=== PATIENT | male | born 1950 | race Caucasian/White ===

== ENCOUNTER 2017-01-10 14:44 | Inpatient (IN) ==
[2017-01-10] MEDS ORDERED: VANCOMYCIN 2,000 MG in 0.9 % SODIUM CHLORIDE 500 ML IV ONE (15:13)
[2017-01-10] MEDS ORDERED: PIPERACILLIN SODIUM/TAZOBACTAM 3.375 GM in DEXTROSE 5% IN WATER 50 ML IV SCH (15:15)
--- NOTE | 2017-01-10 15:33 | Emergency Department Note ---
General Adult HPI - General Chief complaint: Wound/Laceration Stated complaint: wound to left foot Time Seen by Provider: 01/10/17 14:47 Source: patient Mode of arrival: wheelchair Limitations: no limitations - History of Present Illness HPI Narrative: 66-year-old male with a history of poorly controlled diabetes as well as a 2-1/ 2 month history of poorly healing diabetic foot wound with ulceration on the lateral side of his left foot with accompanying cellulitis presenting with failed outpatient IV antibiotic therapy from [place]. Patient last month had 13 day admission at [facility] with IV vancomycin as well as Zosyn. He after being discharged was undergoing outpatient IV twice daily antibiotic therapy with vancomycin and Zosyn, however with failed outpatient therapy. He is brought in from Dr. Slater's clinic at wound care for admission. With regards to patient's diabetes, he is currently on Lantus 26 units of which he takes at noon, glipizide 10 mg at night, metformin unknown dose in the morning, of which he hasn't been taking. States that his sugars fasting have been in the 150 range, sugars 2 hours after meals being all the way up into the 200-300 range. His last A1c reportedly was 11%. His primary care provider is in [place], Dr. Morrow - Related Data Home Medications Medication Instructions Recorded Confirmed Aspirin/Acetaminophen/Caffeine 1 each PO TIDP PRN 01/10/17 01/10/17 [Excedrin Migraine Caplet] Insulin Glargine, Human [Lantus] 26 unit SQ QNOON 01/10/17 01/10/17 L.acidoph,Paracasei, B.lactis 1 each PO DAILY 01/10/17 01/10/17 [Probiotic] Lisinopril [Zestril] 2.5 mg PO DAILY 01/10/17 01/10/17 Magnesium Oxide [Magnesium] 250 mg PO DAILY 01/10/17 01/10/17 glipiZIDE [Glipizide ER] 10 mg PO QHS 01/10/17 01/10/17 Allergies Allergy/AdvReac Type Severity Reaction Status Date / Time No Known Drug Allergies Allergy Verified 01/10/17 14:48 Review of Systems All systems ED: reviewed and negative except as stated. Past Medical History - Past Medical History Source: nursing notes reviewed Physical Exam - General Limitations: no limitations General appearance: alert, in no apparent distress - Head Head exam: atraumatic, normocephalic - Eye Eye exam: Present: normal appearance, PERRL, EOMI - ENT ENT exam: normal exam, normal oropharynx, mucous membranes moist - Respiratory Respiratory exam: Present: normal lung sounds bilaterally. Absent: respiratory distress - Cardiovascular Cardiovascular exam: Present: regular rate, normal rhythm, normal heart sounds - Expanded Lower Extremity Exam Foot/toe exam: Present: other (bleeding 3cm circular foot ulcer with surrounding purulent discharge) Course Vital Signs Temperature 97.0 F 01/10/17 14:45 Pulse Rate 79 01/10/17 14:45 Respiratory Rate 16 01/10/17 14:45 Blood Pressure 167/80 01/10/17 14:45 Pulse Oximetry (%) 99 01/10/17 14:45 Temperature 97.0 F 01/10/17 14:45 Pulse Rate 75 01/10/17 16:12 Respiratory Rate 16 01/10/17 14:45 Blood Pressure 132/76 01/10/17 16:12 Pulse Oximetry (%) 99 01/10/17 16:12 Medical Decision Making - [facility] Narrative Medical decision making narrative: Patient failed outpatient IV antibiotic, with concern over possible extension into osteomyelitis pattern from Dr. Slater. Patient placed on IV Vancomycin and Zosyn upon arrival, with CBC demonstrating normal WBC, ESR mildly elevated at 32 and venous lactic acid normal at 0.8. MRI unavailable today, will need as inpatient tomorrow. Discussed case with Dr. Jones, [facility], agreed upon admission at 16:48. Patient admitted in fair condition. - Lab Data Lab results reviewed: Yes I reviewed the patient's lab results. Result diagrams: 01/10/17 14:55 01/10/17 14:55 Lab Results 01/10/17 01/10/17 01/10/17 Range/Units 14:55 14:55 14:55 WBC 7.3 (4.5-11.0) K/mcL RBC 4.46 L (4.50-5.90) M/mcL Hgb 13.6 (13.5-16.5) g/dL Hct 40.3 L (41.0-55.0) % MCV 90.3 (80.0-100.0) fL MCH 30.6 (26.0-34.0) pg MCHC 33.8 (31.0-36.0) g/dL RDW 14.4 (11.5-14.5) % Plt Count 240 (140-440) K/mcL MPV 7.4 (7.4-10.4) fL Gran % 67.5 (38.0-78.0) % Lymph % (Auto) 20.9 (15.5-49.0) % [place] % (Auto) 5.4 (1.0-12.0) % Eos % (Auto) 5.8 (0.0-7.0) % Baso % (Auto) 0.4 (0.0-2.0) % Gran # 4.9 (1.8-8.0) K/mcL Lymph # 1.5 (1.5-4.8) K/mcL [place] # 0.4 (0.1-0.9) K/mcL Eos # 0.4 (0.0-0.7) K/mcL Baso # 0 (0.0-0.3) K/mcL ESR (0-15) mm/hr VBG Lactic Acid 0.8 (0.5-2.2) mmol/L Sodium 139 (133-145) mmol/L Potassium 4.2 (3.3-5.1) mmol/L Chloride 103 (96-108) mmol/L Carbon Dioxide 20 L (22-30) mmol/L Anion Gap 16.0 (8-16) BUN 30 H (8-23) mg/dl Creatinine 1.1 (0.7-1.2) mg/dl GFR Calculation 70 Glucose 118 H (70-105) mg/dL Calcium 9.2 (8.6-10.4) mg/dl Total Bilirubin 0.2 (0.0-1.0) mg/dL AST 15 (0-37) U/l ALT 14 (0-40) U/l Alkaline Phosphatase 56 (39-117) U/L C-Reactive Protein (0.0-0.8) mg/dl Total Protein 7.3 (5.9-8.4) gm/dL Albumin 4.1 (3.2-5.2) gm/dL Globulin 3.2 (2.2-3.7) gm/dL Albumin/Globulin Ratio 1.3 (1.0-2.3) 01/10/17 01/10/17 Range/Units 14:55 14:55 WBC (4.5-11.0) K/mcL RBC (4.50-5.90) M/mcL Hgb (13.5-16.5) g/dL Hct (41.0-55.0) % MCV (80.0-100.0) fL MCH (26.0-34.0) pg MCHC (31.0-36.0) g/dL RDW (11.5-14.5) % Plt Count (140-440) K/mcL MPV (7.4-10.4) fL Gran % (38.0-78.0) % Lymph % (Auto) (15.5-49.0) % [place] % (Auto) (1.0-12.0) % Eos % (Auto) (0.0-7.0) % Baso % (Auto) (0.0-2.0) % Gran # (1.8-8.0) K/mcL Lymph # (1.5-4.8) K/mcL [place] # (0.1-0.9) K/mcL Eos # (0.0-0.7) K/mcL Baso # (0.0-0.3) K/mcL ESR 24 H (0-15) mm/hr VBG Lactic Acid (0.5-2.2) mmol/L Sodium (133-145) mmol/L Potassium (3.3-5.1) mmol/L Chloride (96-108) mmol/L Carbon Dioxide (22-30) mmol/L Anion Gap (8-16) BUN (8-23) mg/dl Creatinine (0.7-1.2) mg/dl GFR Calculation Glucose (70-105) mg/dL Calcium (8.6-10.4) mg/dl Total Bilirubin (0.0-1.0) mg/dL AST (0-37) U/l ALT (0-40) U/l Alkaline Phosphatase (39-117) U/L C-Reactive Protein < 0.3 (0.0-0.8) mg/dl Total Protein (5.9-8.4) gm/dL Albumin (3.2-5.2) gm/dL Globulin (2.2-3.7) gm/dL Albumin/Globulin Ratio (1.0-2.3) Disposition Clinical Impression: Poorly controlled diabetes mellitus Cellulitis Qualifiers: Site of cellulitis: extremity Site of cellulitis of extremity: lower extremity Laterality: left Qualified Code(s): L03.116 - Cellulitis of left lower limb Disposition: Xfer As Inpt ([facility]) Condition: Fair Referrals: Kelvin Ovalles DO [Primary Care Provider] -
[2017-01-10 15:36] LABS: Basophils # (Auto) 0 K/mcL (0.0-0.3); Basophils % (Auto) 0.4 % (0.0-2.0); Eosinophils # (Auto) 0.4 K/mcL (0.0-0.7); Eosinophils % (Auto) 5.8 % (0.0-7.0); Granulocytes % (Auto) 67.5 % (38.0-78.0); Lymphocytes # (Auto) 1.5 K/mcL (1.5-4.8); Lymphocytes % (Auto) 20.9 % (15.5-49.0); Mean Cell Volume 90.3 fL (80.0-100.0); Mean Corpuscular HGB Conc 33.8 g/dL (31.0-36.0); Mean Corpuscular Hemoglobin 30.6 pg (26.0-34.0); Monocytes # (Auto) 0.4 K/mcL (0.1-0.9); Monocytes % (Auto) 5.4 % (1.0-12.0); Platelet Count 240 K/mcL (140-440); RBC 4.46 M/mcL (4.50-5.90); Red Cell Distribution Width 14.4 % (11.5-14.5)
[2017-01-10 15:56] LABS: ALT/SGPT 14 U/l (0-40); Albumin 4.1 gm/dL (3.2-5.2); Albumin/Globulin Ratio 1.3 (1.0-2.3); Alkaline Phosphatase 56 U/L (39-117); Blood Urea Nitrogen 30 mg/dl (8-23)
[2017-01-10] MEDS ORDERED: NON FORMULARY MEDICATION 1 DOSE MISCELL (Aspirin/Acetaminophen/Caffeine [Excedrin Migraine PO PRN ×2 (17:16→18:41)
--- NOTE | 2017-01-10 17:23 | Internal Med History&Physical ---
Medical - H&P: HPI Patient information: Note initiated : 01/10/17 at 5:20 pm Patient: Jason Gonzales 66 y/o M admitted on for wound to left foot. History of present illness: Mr. Gonzales is a 66 year old male ith a history of type 2 diabetes for more than 20 years. He says he really has had no significant other medical issues that he is aware of. He did develop diabetic peripheral neuropathy over the last 2 years, so has decreased sensation of his feet. In October of this year he said he was walking around and some rubber boots, and subsequently noticed a "blood blister" of his left foot. He popped it and then covered it with a Band- Aid. He thought he did okay but later that month he got the flu and went in to see his doctor. He has to stop to check his foot and apparently there was pus coming out of the opening. He was then admitted to [facility] in [place] for 2 weeks of IV antibiotics. He then was sent home, and came in twice a day for twice a day IV antibiotics, we believe Zosyn and vancomycin. He has been getting wound care to her 3 days a week, but says he noticedover the last week he had some increased discomfort and increased swelling of his foot. He went to see his doctor today, who then referred him down to see Dr. Colorado of wound care. Dr. Colorado looked at his foot, and was concerned about an underlying abscess andor osteomyelitis. The patient was examined in the emergency room, and noticed to have a round ulcer on the plantar surface of the left foot with significant bloody drainage. There was surrounding cellulitis and edema. He is, however, afebrile White blood cell count is normal. Sedimentation rate is mildly elevated. The patient notes that over the last few years he had stopped monitoring his diabetes very closely, and prior to hospital admission in November he had blood sugars in the 200-300 range. However normally, blood sugars run less than 150. Otherwise, he denies fever or chills, headaches or dizziness new eye or ear symptoms. He does have chronic blurry vision, and chronic tinnitus. Does wear hearing aids. He denies trouble chewing or swallowing, and denies sore throat or cough. He denies chest pain or palpitations, swollen glands, shortness of breath, abdominal pain, nausea or vomiting or diarrhea, constipation He does have chronic urinary frequency but has never seen a specialist for that. PMH: DM 2, recently uncontrolled diabetic peripheral neuropathy Diabetic foot ulcer-status post 6 or 8 weeks of IV Zosyn and vancomycin. hronic tinnitus Chronic blurry vision History of right Achilles tendon rupture patient denies history of hypertension ,heart disease, hyperlipidemia PCP office notes indicate possible hypertension. medications: Magnesium oxide 250 mg daily Probiotics one daily Excedrin migraine one 3 times a day when necessary Glipizide ER 10 mg daily at bedtime Lisinopril 2.5 - 5 mg daily Lantus 26 units every noon Vancomycin and IV Zosyn daily at an outpatient clinic. (patient says he was previously treated with metformin, and that was changed to glipizide. He does not recall why. Notes obtained from [facility] indicate the patient is also taking atorvastatin 40 mg daily, Flomax 0.4 mg daily, omeprazole dailycomment metformin 1000 mg twice a day Allergies:No known drug allergies Family history: mother at age 51 after an accident. His father at age 83 after an accident. He had 6 brothers and one sister. One brother was recently diagnosed with liver cancer. 3 brothers have , 2 from accidents, and 1in the [employer]. His sister is 86 years old and alive and well. Social history: he patient has never been a smoker. He drinks about one beer per week. He does not use drugs. He is and lives with his . He has worked as a floor covering contractor, and more recently mostly supervises Medical - H&P: Meds Home Medications Medication Instructions Recorded Confirmed Type Aspirin/Acetaminophen/Caffeine 1 each PO TIDP PRN 01/10/17 01/10/17 History [Excedrin Migraine Caplet] Insulin Glargine, Human [Lantus] 26 unit SQ QNOON 01/10/17 01/10/17 History L.acidoph,Paracasei, B.lactis 1 each PO DAILY 01/10/17 01/10/17 History [Probiotic] Lisinopril [Zestril] 2.5 mg PO DAILY 01/10/17 01/10/17 History Magnesium Oxide [Magnesium] 250 mg PO DAILY 01/10/17 01/10/17 History glipiZIDE [Glipizide ER] 10 mg PO QHS 01/10/17 01/10/17 History Allergies Allergy/AdvReac Type Severity Reaction Status Date / Time No Known Drug Allergies Allergy Verified 01/10/17 14:48 Medical - H&P: Exam - Constitutional Vitals: Temp Pulse Resp BP Pulse Ox 97.0 F 77 16 118/76 99 01/10/17 14:45 01/10/17 17:01 01/10/17 14:45 01/10/17 17:01 01/10/17 17:01 on exam, he is a well-developed well-nourished man in no acute distress. Head: Normocephalic, atraumatic. ears: He has bilateral hearing aids. TMs and canals are clear. Eyes: PERRLA, EOMI, anicteric. pharynx: Is clear. Teeth are in good repair. Neck: Is supple, without lymphadenopathy, JVD, thyromegaly, bruits. Cardiac exam: Shows regular rate and rhythm, with normal S1 and S2, without murmurs rubs or gallops. Lungs: Are clear to auscultation, without rales, rhonchi, wheezes. Abdomen: Soft and nontender, without obvious masses. Bowel sounds are normoactive. Extremities: right lower extremity shows no cyanosis, clubbing, edema. Pulses are faintly palpable. Left lower extremity that shows some mild pitting edema at the ankle. The left foot is heavily bandaged, and Dr. Colorado has requested that we not remove that bandage. There is blood seeping through on the plantar surface. Neurologic exam: Is grossly nonfocal. Skin exam: Other than his foot, shows no rashes or other worrisome lesions. Medical - H&P: Reslt - Labs CBC & Chem 7: 01/10/17 14:55 01/10/17 14:55 Labs: Short CBC 01/10/17 Range/Units 14:55 WBC 7.3 (4.5-11.0) K/mcL Hgb 13.6 (13.5-16.5) g/dL Hct 40.3 L (41.0-55.0) % Plt Count 240 (140-440) K/mcL BMP 01/10/17 14:55 Sodium 139 Potassium 4.2 Chloride 103 Carbon Dioxide 20 L BUN 30 H Creatinine 1.1 Glucose 118 H Calcium 9.2 Liver Function 01/10/17 Range/Units 14:55 Total Bilirubin 0.2 (0.0-1.0) mg/dL AST 15 (0-37) U/l ALT 14 (0-40) U/l Alkaline Phosphatase 56 (39-117) U/L Albumin 4.1 (3.2-5.2) gm/dL sedimentation rate: 24 Lactic acid is 0.8 normal C-reactive protein is normal at less than 0.3 Medical - H&P: A/P (1) Peripheral sensory neuropathy due to type 2 diabetes mellitus Current visit: Yes Status: Acute (2) Cellulitis Current visit: Yes Status: Acute (3) Poorly controlled diabetes mellitus Current visit: Yes Status: Acute - Narrative A/P Narrative: #1. Infected diabetic foot ulcer. this apparently is worsening, in spite of ongoing wound care and IV antibiotics. There is concern for underlying abscess and/or osteomyelitis.- -Admit, continue IV vancomycin. Change Zosyn over to meropenem. -mRI of his foot is ordered- -Wound care consult with Dr. Colorado. -Pain meds as needed. #2. Type 2 diabetes. -Continue Lantus, lisinopril, glipizide. -Accu-Cheks and sliding scale insulin. #3. CODE STATUS: #4. DVT prophylaxis: Subcutaneous Lovenox. #5. Elevated blood pressure. Continue to monitor. #6. Reported urinary frequency. Check urinalysis. #7. Elevated BUN- possibly indicating dehydration. -IV fluids. Follow labs. this visit took approximately 50 minutes, to review the patient's case with the ER Raquel, review test results, interview and examine the patient, review hospital records from [facility], and write orders.
[2017-01-10] MEDS ORDERED: DOCUSATE SODIUM 100 MG CAPSULE PO PRN (18:41)
[2017-01-10] MEDS ORDERED: ONDANSETRON ODT 4 MG TABLET SL PRN (18:41)
[2017-01-10] MEDS ORDERED: HYDROcodone/APAP 5/325MG TABLET PO PRN (18:41)
[2017-01-10] MEDS ORDERED: VANCOMYCIN PER PHARMACY IV SCH (18:41)
[2017-01-10] MEDS ORDERED: ACETAMINOPHEN 325 MG TABLET PO PRN (18:41)
[2017-01-10] MEDS ORDERED: MAGNESIUM HYDROXIDE 30 ML ORAL.SUSP PO PRN (18:41)
[2017-01-10] MEDS ORDERED: DEXTROSE 50% 50 ML VIAL IV PRN (18:41)
[2017-01-10] MEDS ORDERED: NALOXONE HCL 0.4 MG/ML VIAL IV PRN (18:41)
[2017-01-10] MEDS: POTASSIUM CHLORIDE 20 MEQ in 0.45 % SODIUM CHLORIDE 1,000 ML IV SCH (18:59)
[2017-01-10] MEDS ORDERED: IMIPENEM/CILASTATIN SODIUM 500 MG VIAL IV ONE (20:00)
[2017-01-10] MEDS: IMIPENEM/CILASTATIN SODIUM 500 MG in 0.9 % SODIUM CHLORIDE 100 ML IV SCH (20:05)
[2017-01-10 20:42] LABS: Estimated Average Glucose(eAG) 174 mg/dL; Hemoglobin A1C 7.7 % HGB (4.0-6.0)
[2017-01-10] MEDS ORDERED: GLIPIZIDE 10 MG PO SCH (21:00)
[2017-01-10] MEDS: INSULIN LISPRO 1 UNIT/0.01 ML UNIT SQ SCH (21:11)
--- NOTE | 2017-01-10 21:15 | General Surgery Consult Note ---
History of Present Illness Patient information: Note initiated : 01/10/17 at 9:07 pm Service Date, if different from initiated Date: [] Patient: Jason Gonzales 66 y/o M admitted on 01/10/17 for wound to left foot. Chief Complaint: [] Consult date: 01/10/17 Reason for consult: other Requesting physician: Chika Arredondo History of present illness: 66/M From [facility]. ID. [id number], Peripheral neuropathy. NON smoker and NON alcoholic. seen in Wound Clinic and later admitted to the hospital via ER . Patient presents with FAILED out patient treatment for a NON HEALING and deteriorating wound with FAILED IP / OP non surgical treatment. This started as a blood blister on the plantar aspect of LEFT 5 th toe. This IS worsening over the past 2 weeks. Painless in nature and without constitutional symptoms and with uncontrolled diabetes, electrolyte disorders and now with blood tinged / purulent drainage soaking through gauze. I had seen patient in clinic earlier on and removed iodoform gauze packing with resolution of throbbing pain and discomfort. I reviewed his notes from the referring hospital and spoke with Dr. NICHOLE about patient's admission to [facility] for further management. Review of Systems - Constitutional other (Pain and discomfort over the left foot and difficulty in ambulation. ) - Musculoskeletal other (Blood boil / Blister over plantar and lateral aspect of LEFT 5 th toe around MPJ area, 2 weeks ago. This ruptured and led to mutliple areas od drainage. ) - Neurological other (Peripheral neuropathy both feet.) Past History Past medical history: Hospitalized at [facility] in [facility] [place] for wound care and IV antibiotics. Sylvia lower inner third of leg, drained pus and dried up subsequently. Medications and Allergies Home Medications Medication Instructions Recorded Confirmed Type Aspirin/Acetaminophen/Caffeine 1 each PO TIDP PRN 01/10/17 01/10/17 History [Excedrin Migraine Caplet] Insulin Glargine, Human [Lantus] 26 unit SQ QNOON 01/10/17 01/10/17 History L.acidoph,Paracasei, B.lactis 1 each PO DAILY 01/10/17 01/10/17 History [Probiotic] Lisinopril [Zestril] 2.5 mg PO DAILY 01/10/17 01/10/17 History Magnesium Oxide [Magnesium] 250 mg PO DAILY 01/10/17 01/10/17 History glipiZIDE [Glipizide ER] 10 mg PO QHS 01/10/17 01/10/17 History Allergies Allergy/AdvReac Type Severity Reaction Status Date / Time No Known Drug Allergies Allergy Verified 01/10/17 14:48 Exam Temp Pulse Resp BP Pulse Ox 98.4 F 80 20 158/82 98 01/10/17 17:50 01/10/17 17:50 01/10/17 17:50 01/10/17 17:50 01/10/17 17:50 - General physical appearance well developed, well nourished, no pain - Eyes PERRL, normal ocular movement - ENT normal pinna, normal nares, normal mucosa, no hearing loss, no congestion - Head Head exam IM: Present: atraumatic, normal inspection, normocephalic - Neck no masses, no bruits, trachea midline, no lymphadectomy, no venous distension - Cardiovascular Cardiovascular exam IM: Present: normal rate and rhythm - Respiratory normal expansion, normal respiratory effort, clear to auscultation - Abdomen Abdomen: Present: soft, non tender, bowel sounds - Genitourinary Present: normal penis with no external lesions - Integumentary Present: other (Multiple sinuses and hemopurulent driange from plantar, lateral and dorsal aspect of LEFT 5th toe MPJ area. ) - Neurologic Present: other (No focal neurological deficits or lateralizing signs, he HAS diabetes with peripheral neuropahty of BOTH feet, ankles and lower legs.) - Musculoskeletal Present: normal gait, other (Onycogryposis toe nails both feet. ) - Psychiatric Present: oriented to time, oriented to person, oriented to place, speech is normal, memory intact Results - Labs 01/11/17 03:39 01/11/17 03:39 Abnormal lab results 01/10/17 Range/Units 19:58 Hemoglobin A1c 7.7 H (4.0-6.0) % HGB Diabetes panel 01/10/17 Range/Units 19:58 Hemoglobin A1c 7.7 H (4.0-6.0) % HGB All other labs normal. Assessment and Plan (1) Sepsis affecting skin Assessment: multiple loculated collections around Left 5 th toe MPJ and distally extending to MPJ and proximal interosseous space. Pln: Loculations drained and subcutaneous tissue thoroughly irrigated and washed out with GCB solution. Patient started on IV antibiotics. Await MRI of left foot , ankle and lower leg. WOUND CARE. Clean and cover with antibiotic soaked wet to dry dressings q 12 hrly. Monitor clinical progress. POSSIBLE Surgical debridement in OR AFTER review of MRI. Status: Acute (2) Septic arthritis of interphalangeal joint of toe of left foot Status: Acute
[2017-01-10] MEDS: 0.9 % SODIUM CHLORIDE 10 ML SYRINGE IV SCH (21:30)
[2017-01-11] MEDS ORDERED: IMIPENEM/CILASTATIN SODIUM 500 MG VIAL IV ONE (03:52)
[2017-01-11] MEDS ORDERED: POTASSIUM CHLORIDE 20 MEQ/10 ML VIAL IV ONE (03:53)
[2017-01-11] MEDS: IMIPENEM/CILASTATIN SODIUM 500 MG in 0.9 % SODIUM CHLORIDE 100 ML IV SCH ×3 (04:04→20:14)
[2017-01-11 05:13] LABS: Basophils # (Auto) 0 K/mcL (0.0-0.3); Basophils % (Auto) 0.8 % (0.0-2.0); Eosinophils # (Auto) 0.6 K/mcL (0.0-0.7); Eosinophils % (Auto) 9.4 % (0.0-7.0); Granulocytes % (Auto) 61.9 % (38.0-78.0); Lymphocytes # (Auto) 1.2 K/mcL (1.5-4.8); Lymphocytes % (Auto) 19.9 % (15.5-49.0); Mean Cell Volume 90.8 fL (80.0-100.0); Mean Corpuscular HGB Conc 33.6 g/dL (31.0-36.0); Mean Corpuscular Hemoglobin 30.5 pg (26.0-34.0); Monocytes # (Auto) 0.5 K/mcL (0.1-0.9); Platelet Count 210 K/mcL (140-440); RBC 4.18 M/mcL (4.50-5.90); Red Cell Distribution Width 14.4 % (11.5-14.5)
[2017-01-11 05:44] LABS: Prealbumin 22.5 mg/dl (20-40)
[2017-01-11] MEDS: 0.9 % SODIUM CHLORIDE 10 ML SYRINGE IV SCH ×3 (05:52→21:42)
[2017-01-11 05:53] LABS: ALT/SGPT 12 U/l (0-40); Albumin 3.8 gm/dL (3.2-5.2); Albumin/Globulin Ratio 1.5 (1.0-2.3); Alkaline Phosphatase 48 U/L (39-117); Bilirubin,Direct < 0.2 mg/dL (0.0-0.3); Blood Urea Nitrogen 21 mg/dl (8-23); Gamma Glutamyl Transpeptidase 14 U/L (8-61); Magnesium 2.2 mg/dL (1.6-2.5); Uric Acid 6.1 mg/dL (2.5-8.0)
[2017-01-11] MEDS: POTASSIUM CHLORIDE 20 MEQ in 0.45 % SODIUM CHLORIDE 1,000 ML IV SCH ×2 (06:20→14:19)
[2017-01-11 07:00] LABS: Erythrocyte Sedimentation Rate 18 mm/hr (0-15)
[2017-01-11] MEDS: INSULIN LISPRO 1 UNIT/0.01 ML UNIT SQ SCH ×4 (07:01→20:50)
[2017-01-11] MEDS: MAGNESIUM OXIDE 400 MG TABLET PO SCH (07:34)
[2017-01-11] MEDS: ENOXAPARIN 40 MG/0.4 ML SYRINGE SQ SCH (07:34)
[2017-01-11] MEDS: glipiZIDE 5 MG TAB.XL.24H PO SCH ×2 (07:34→16:45)
[2017-01-11] MEDS: LISINOPRIL 5 MG TABLET PO SCH (07:34)
[2017-01-11] MEDS: VANCOMYCIN 1,500 MG in 0.9 % SODIUM CHLORIDE 500 ML IV SCH ×2 (08:00→21:26)
[2017-01-11] MEDS ORDERED: [UNRECOGNIZED DRUG - OTHER] PO SCH (09:00)
[2017-01-11] MEDS ORDERED: ASPIRIN 81 MG TAB.CHEW CHEWED SCH (09:00)
[2017-01-11] MEDS ORDERED: LISINOPRIL 2.5 MG TABLET PO SCH (09:00)
[2017-01-11] MEDS ORDERED: ACIDOPH PARACASEI B LACTIS PO SCH (09:00)
[2017-01-11] MEDS ORDERED: MAGNESIUM OXIDE 250 MG PO SCH (09:00)
--- NOTE | 2017-01-11 09:22 | Internal Med Progress Note ---
Medical - PN: Subj Patient information: Note initiated : 01/11/17 at 9:21 am Patient: Jason Gonzales 66 y/o M admitted on 01/10/17 for wound to left foot. Interval history: January 10, 2017: History of present illness: Mr. Gonzales is a 66 year old male ith a history of type 2 diabetes for more than 20 years. He says he really has had no significant other medical issues that he is aware of. He did develop diabetic peripheral neuropathy over the last 2 years, so has decreased sensation of his feet. In October of this year he said he was walking around and some rubber boots, and subsequently noticed a "blood blister" of his left foot. He popped it and then covered it with a Band- Aid. He thought he did okay but later that month he got the flu and went in to see his doctor. He has to stop to check his foot and apparently there was pus coming out of the opening. He was then admitted to [facility] in [place] for 2 weeks of IV antibiotics. He then was sent home, and came in twice a day for twice a day IV antibiotics, we believe Zosyn and vancomycin. He has been getting wound care to her 3 days a week, but says he noticedover the last week he had some increased discomfort and increased swelling of his foot. He went to see his doctor today, who then referred him down to see Dr. Colorado of wound care. Dr. Colorado looked at his foot, and was concerned about an underlying abscess andor osteomyelitis. The patient was examined in the emergency room, and noticed to have a round ulcer on the plantar surface of the left foot with significant bloody drainage. There was surrounding cellulitis and edema. He is, however, afebrile White blood cell count is normal. Sedimentation rate is mildly elevated. The patient notes that over the last few years he had stopped monitoring his diabetes very closely, and prior to hospital admission in November he had blood sugars in the 200-300 range. However normally, blood sugars run less than 150. Otherwise, he denies fever or chills, headaches or dizziness new eye or ear symptoms. He does have chronic blurry vision, and chronic tinnitus. Does wear hearing aids. He denies trouble chewing or swallowing, and denies sore throat or cough. He denies chest pain or palpitations, swollen glands, shortness of breath, abdominal pain, nausea or vomiting or diarrhea, constipation He does have chronic urinary frequency but has never seen a specialist for that. January 11: -today, he patient says he is feelingpretty well. He still notes some soreness in his left posterior ankle and leg area, and less so in his foot. The foot and ankle are still swollen. - Otherwise, he says he feels fine. He denies fever or chills, headaches or dizziness, chest pain or palpitations, shortness of breath, abdominal pain.he denies dysuria. -He does report several loose stools last night, and one this morning, without abdominal cramping or bright red blood per rectum. Medication list from his November 25 discharge hospital records: Atorvastatin 40 mg daily, Flomax 0.4 mg daily, glipizide 10 mg daily, Lantus 30 unitsdaily, lisinopril 2.5 mg daily, omeprazole daily this does not coincide with the medication list the patient gave us. - Constitutional Vitals: Vital Signs Temp Pulse Resp BP Pulse Ox 97.1 F 72 16 148/80 97 01/11/17 06:27 01/11/17 04:00 01/11/17 06:27 01/11/17 06:27 01/11/17 06:27 Period Temp Pulse Resp BP Sys/Barney Pulse Ox Last 24 Hr 97.1 F-97.6 F 71-73 12-16 121-148/69-80 95-98 Intake and Output 01/10/17 01/11/17 01/11/17 21:59 05:59 13:59 Intake Total 1060 / 1060 Output Total 325 / 325 651 / 651 350 / 350 Balance -325 / -325 409 / 409 -350 / -350 Weight 214 lb Intake & Output: Intake & Output 01/10/17 01/11/17 01/11/17 21:59 05:59 13:59 Intake Total 1060 / 1060 Output Total 325 / 325 651 / 651 350 / 350 Balance -325 / -325 409 / 409 -350 / -350 Weight 214 lb Intake: IV 1010 / 1010 Potassium Chloride 20 Meq 1010 / 1010 In Sodium Chloride 0.45% 1,000 ml @ 100 mls/hr IV .Q10H6M [facility] Rx#: [id number] Oral 50 / 50 Output: Void Amount 325 / 325 650 / 650 350 / 350 # of times incontinent of urine Other: Meal Breakfast Percent of Meal Consumed 100% Feeding Ability Independent # Voids 2 # Bowel Movements 1 1 he is lying in bed, napping when I entered the room. He awakens easily, and is in no acute distress. neck is supple without lymphadenopathy or JVD. cardiac exam shows regular rate and rhythm. Lungs are clear to auscultation. Abdomen is soft and nontender. Extremities:Right lower extremity shows no cyanosis or edema. Left lower extremity the foot is heavily bandaged. There continues to be swelling and tenderness from the foot up into the ankle as well as the posterior lower leg. there is very minimal erythema noted. neuro exam is grossly nonfocal. Medical - PN: Obj Da - Labs CBC & Chem 7: 01/11/17 03:39 01/11/17 03:39 Labs: Abnormal Lab Results 01/11/17 01/10/17 03:39 19:58 RBC 4.18 L Hgb 12.8 L Hct 38.0 L Eos % (Auto) 9.4 H Lymph # 1.2 L ESR 18 H Hemoglobin A1c 7.7 H January 2 : TSH is normal at 1.6 lFTs are normal. Calcium and magnesium are normal. Uric acid is normal. Meds: Medications Acetaminophen (Tylenol) 650 mg PO Q6HP PRN PRN Reason: PAIN/FEVER > 101 Acetaminophen/Hydrocodone Bitart ([place]mond 5/325mg) 1 tab PO Q4HP PRN PRN Reason: Pain Aspirin (Aspirin) 81 mg CHEWED DAILY [facility] Last Admin: 01/11/17 07:34 Dose: 81 mg Dextrose (Dextrose 50%) 0 ml IV UD PRN PRN Reason: Hypoglycemia Diagnostic Test (Pha) (Accu-Chek) 1 each FS ACHS [facility] Last Admin: 01/11/17 07:01 Dose: 1 each Docusate Sodium (Colace) 100 mg PO BID PRN PRN Reason: Constipation Enoxaparin Sodium (Lovenox) 40 mg SQ DAILY [facility] Last Admin: 01/11/17 07:34 Dose: 40 mg Glipizide (Glucotrol Xl) 5 mg PO BIDAC [facility] Last Admin: 01/11/17 07:34 Dose: 5 mg Potassium Chloride 20 meq/ (Sodium Chloride) 1,010 mls @ 100 mls/hr IV .Q10H6M [facility] Last Admin: 01/11/17 06:20 Dose: 100 mls/hr Imipenem/Cilastatin Sodium 500 (mg/ Sodium Chloride) 100 mls @ 100 mls/hr IV Q8H [facility] Last Admin: 01/11/17 04:04 Dose: Not Given Vancomycin HCl 1,500 mg/ (Sodium Chloride) 500 mls @ 333.3 mls/hr IV Q12H [facility] Last Admin: 01/11/17 08:00 Dose: 333.3 mls/hr Gentamicin Sulfate 40 mg/Clindamycin Phosphate 300 mg/Bacitracin 25,000 unit/ Sodium Chloride 503 mls @ 1 mls/hr IRR BID [facility] Insulin Glargine (Lantus) 26 unit SQ QNOON [facility] Insulin Human Lispro (Humalog) 0 unit SQ ACHS [facility] PRN Reason: Protocol Last Admin: 01/11/17 07:01 Dose: Not Given Lactobacillus Rhamnosus (Culturelle) 1 cap PO DAILY [facility] Lisinopril (Zestril) 2.5 mg PO DAILY [facility] Last Admin: 01/11/17 07:34 Dose: 2.5 mg Magnesium Hydroxide (Milk Of Magnesia) 30 ml PO DAILYP PRN PRN Reason: Constipation Magnesium Oxide (Magnesium Oxide) 400 mg PO DAILY [facility] Last Admin: 01/11/17 07:34 Dose: 400 mg Naloxone HCl (Narcan) 0.1 mg IV Q2MIN PRN PRN Reason: Opiate Reversal Ondansetron HCl (Zofran Odt) 4 mg SL Q6HP PRN PRN Reason: Nausea And Vomiting Sodium Chloride (Saline Flush) 10 ml IV Q8 [facility] Last Admin: 01/11/17 05:52 Dose: Not Given Vancomycin HCl (Vancomycin Per Pharmacy) 1 order IV UD [facility] Medical - PN: A/P - Time Spent With Patient Total time spent is greater than 50% in coordination of care (as documented) at patient's floor/unit and/or counseling patient: (1) Peripheral sensory neuropathy due to type 2 diabetes mellitus Status: Acute Current Visit: Yes (2) Cellulitis Status: Acute Current Visit: Yes (3) Poorly controlled diabetes mellitus Status: Acute Current Visit: Yes - Narrative A/P Narrative: #1. Infected diabetic foot ulcer. this apparently is worsening, in spite of ongoing wound care and IV antibiotics. There is concern for underlying abscess and/or osteomyelitis.- -Admit, continue IV vancomycin. Change Zosyn over to meropenem. -mRI of his foot is ordered- this will hopefully be done this morning. -Wound care consult with Dr. Colorado. -Pain meds as needed. -hopefully we will get repeat cultures, and Dr. Colorado decides to take the patient to the OR. #2. Type 2 diabetes. last 3 Accu-Cheks range from 110-155. Hemoglobin A1c is nearly at goal so clearly diabetic control has been improving over the last few months. -Continue Lantus, lisinopril, glipizide. I did split his dose of glipizide, in case he runs into hypoglycemia. -Accu-Cheks and sliding scale insulin. -as a diabetic, he should be on daily aspirin, LETY inhibitor, statin. It appears he has only been on a low-dose lety at home. although, hospital records indicate he was prescribed atorvastatin. - November records from his PCP indicated he should be on metformin, but the patient believes this was discontinued. I would rather see him discontinue the glipizide, and continue with metformin and Lantus. I would consider resuming metformin, and holding glipizide, after any studies requiring dye, and/or surgery. -consider titrating the lisinopril. Add daily aspirin, again once any surgery is completed. -resume atorvastatin. #3. CODE STATUS: full code. #4. DVT prophylaxis: Subcutaneous Lovenox. #5. Elevated blood pressure. Continue to monitor. -consider up-titrating the lisinopril. -Of note, the patient has noticed a dry cough lately. This may be related to his LETY inhibitor. We may want to consider switching lisinopril over to Cozaar. #6. Reported urinary frequency. - Check urinalysis. -november hospital records indicate he was on Flomax at home, although the patient does not seem to recall this. -we will see if his can bring in his current home medication list, or perhaps check with his pharmacy. #7. Elevated BUN- possibly indicating dehydration. -improved after IV fluids overnight. #8. GI. -patient reports several loose stools. He is certainly at risk for C. difficile colitis. Send stool for C. difficile. Continue probiotics. this visit took approximately 30 minutes today, to interview and examine the patient, review test results, review previous medication list again, and write orders. Medical - PN: Qual - Stroke Symptom Onset Unknown: No - VTE Deep Vein Thrombosis/Pulmonary Embolism Present on Admission: No
[2017-01-11] MEDS: LACTOBACILLUS 1 CAPSULE PO SCH (09:50)
[2017-01-11] MEDS: GENTAMICIN SULFATE 40 MG, CLINDAMYCIN 300 MG, BACITRACIN 25,000 UNIT in SODIUM CHLORIDE... IRR SCH ×2 (09:51→21:42)
--- NOTE | 2017-01-11 10:10 | General Surgery Progress Note ---
Subjective Patient reports: no new complaints, other (No overnite events. reported. AWAITS MRI of left foot. ) Narrative: Note initiated : 01/11/17 at 10:08 am Service Date, if different from initiated Date: [] Patient: Jason Gonzales 66 y/o M admitted on 01/10/17 for wound to left foot. Chief Complaint: [] Objective Temp Pulse Resp BP Pulse Ox 97.1 F 72 16 148/80 97 01/11/17 06:27 01/11/17 04:00 01/11/17 06:27 01/11/17 06:27 01/11/17 06:27 - Additional Data Intake & Output - Last 24 hours: Intake & Output 01/09/17 01/10/17 01/11/17 01/12/17 05:59 05:59 05:59 05:59 Intake Total 1060 / 1060 240 / 240 Output Total 976 / 976 350 / 350 Balance 84 / 84 -110 / -110 Weight 214 lb 01/11/17 10:09 AVSS. No changes in JACY. LEFT foot and toes cleaned, with NS and GCP solution and dressings changed. - Labs 01/11/17 03:39 01/11/17 03:39 Diabetes panel 01/10/17 01/11/17 Range/Units 19:58 03:39 Sodium 140 (133-145) mmol/L Potassium 4.3 (3.3-5.1) mmol/L Chloride 107 (96-108) mmol/L Carbon Dioxide 22 (22-30) mmol/L BUN 21 (8-23) mg/dl Creatinine 1.0 (0.7-1.2) mg/dl Glucose 105 (70-105) mg/dL Hemoglobin A1c 7.7 H (4.0-6.0) % HGB Calcium 9.1 (8.6-10.4) mg/dl AST 12 (0-37) U/l ALT 12 (0-40) U/l Alkaline Phosphatase 48 (39-117) U/L Total Protein 6.4 (5.9-8.4) gm/dL Albumin 3.8 (3.2-5.2) gm/dL Triglycerides 144 (<150) mg/dl Thyroid panel 01/11/17 Range/Units 03:39 TSH 1.60 (0.27-5.01) uIU/ml Calcium panel 01/11/17 Range/Units 03:39 Calcium 9.1 (8.6-10.4) mg/dl Phosphorus 4.0 (2.7-4.5) mg/dL Albumin 3.8 (3.2-5.2) gm/dL Pituitary panel 01/11/17 01/11/17 Range/Units 03:39 03:39 Sodium 140 (133-145) mmol/L Potassium 4.3 (3.3-5.1) mmol/L Chloride 107 (96-108) mmol/L Carbon Dioxide 22 (22-30) mmol/L BUN 21 (8-23) mg/dl Creatinine 1.0 (0.7-1.2) mg/dl Glucose 105 (70-105) mg/dL Calcium 9.1 (8.6-10.4) mg/dl TSH 1.60 (0.27-5.01) uIU/ml Adrenal panel 01/11/17 Range/Units 03:39 Sodium 140 (133-145) mmol/L Potassium 4.3 (3.3-5.1) mmol/L Chloride 107 (96-108) mmol/L Carbon Dioxide 22 (22-30) mmol/L BUN 21 (8-23) mg/dl Creatinine 1.0 (0.7-1.2) mg/dl Glucose 105 (70-105) mg/dL Calcium 9.1 (8.6-10.4) mg/dl Total Bilirubin 0.3 (0.0-1.0) mg/dL AST 12 (0-37) U/l ALT 12 (0-40) U/l Alkaline Phosphatase 48 (39-117) U/L Total Protein 6.4 (5.9-8.4) gm/dL Albumin 3.8 (3.2-5.2) gm/dL Assessment and Plan (1) Sepsis affecting skin Status: Acute Current Visit: Yes (2) Septic arthritis of interphalangeal joint of toe of left foot Status: Acute Current Visit: Yes - Time Spent With Patient Total time spent is greater than 50% in coordination of care (as documented) at patient's floor/unit and/or counseling patient: Patient seen with [facility]. Wound Care and IV antibiotics are ongoing. For MRI today. PLAN: Continue current management. Reassess again tomorrow 01/12/2017 25 - 35 minutes
[2017-01-11] MEDS ORDERED: INSULIN GLARGINE, HUMAN 1 UNIT/0.01 ML SQ SCH (12:00)
[2017-01-11] MEDS: INSULIN GLARGINE, HUMAN 1 UNIT/0.01 ML SQ SCH (13:19)
--- NOTE | 2017-01-11 15:05 | Magnetic Resonance Report ---
History: Diabetic with Foot infection, skin ulceration and draining wound Technique: Multiplanar imaging was performed using multiple pulse sequences both pre and post gadolinium contrast. A marker is placed on the skin surface over the open wound along the plantar surface of the foot. Findings: This skin marker overlies an ulceration located inferior to the head of the fifth metatarsal. There is severe cellulitis inferior and lateral to the head of the fifth metatarsal. Superior to the head of the fifth metatarsal and there is a abscess pocket which drains superiorly to the skin surface, dorsal to the head of the fourth and fifth metatarsals. The abscess pocket is 1.1 x 1.3 x 2.3 cm. There is also cellulitis between the fourth and fifth metatarsals. The edema extends into the musculature on the plantar surface of the foot. There is also subcutaneous edema extending proximally to the ankle. There is no evidence of bone erosion, bone marrow edema or abnormal enhancement within the bones. No fracture or dislocation are present. There is also no evidence of a joint effusion. The tendons in the foot and around the ankle appear normal. No abnormality is seen within the ankle. Patient does have arthritis with a subchondral cyst in the head of the proximal phalanx of the first toe. There is no associated soft tissue infection. Impression: Subcutaneous Abscess along the dorsal side of the distal end of the fourth and fifth metatarsals Skin ulceration with cellulitis along the plantar surface, beneath the head of the fifth metatarsal No evidence of osteomyelitis Interpreted and Authenticated by: Chandan Villarreal 01/11/17
[2017-01-11] MEDS: PANTOPRAZOLE 40 MG TABLET PO SCH (18:47)
[2017-01-11] MEDS: ATORVASTATIN 20 MG TABLET PO SCH (20:50)
[2017-01-12] MEDS: POTASSIUM CHLORIDE 20 MEQ in 0.45 % SODIUM CHLORIDE 1,000 ML IV SCH ×5 (00:33→22:22)
[2017-01-12] MEDS: IMIPENEM/CILASTATIN SODIUM 500 MG in 0.9 % SODIUM CHLORIDE 100 ML IV SCH ×3 (03:44→19:54)
[2017-01-12] MEDS: 0.9 % SODIUM CHLORIDE 10 ML SYRINGE IV SCH ×3 (05:46→21:50)
[2017-01-12 06:24] LABS: Basophils # (Auto) 0 K/mcL (0.0-0.3); Basophils % (Auto) 0.6 % (0.0-2.0); Eosinophils # (Auto) 0.5 K/mcL (0.0-0.7); Eosinophils % (Auto) 12.6 % (0.0-7.0); Granulocytes % (Auto) 48.3 % (38.0-78.0); Lymphocytes # (Auto) 1.3 K/mcL (1.5-4.8); Lymphocytes % (Auto) 31.5 % (15.5-49.0); Mean Cell Volume 90.7 fL (80.0-100.0); Mean Corpuscular Hemoglobin 30.9 pg (26.0-34.0); Monocytes # (Auto) 0.3 K/mcL (0.1-0.9); Platelet Count 195 K/mcL (140-440); RBC 4.14 M/mcL (4.50-5.90); Red Cell Distribution Width 14.3 % (11.5-14.5)
[2017-01-12 06:37] LABS: ALT/SGPT 12 U/l (0-40); Albumin 3.7 gm/dL (3.2-5.2); Albumin/Globulin Ratio 1.4 (1.0-2.3); Alkaline Phosphatase 48 U/L (39-117); Bilirubin,Direct < 0.2 mg/dL (0.0-0.3); Blood Urea Nitrogen 13 mg/dl (8-23); Gamma Glutamyl Transpeptidase 13 U/L (8-61); Uric Acid 5.9 mg/dL (2.5-8.0)
[2017-01-12] MEDS: INSULIN LISPRO 1 UNIT/0.01 ML UNIT SQ SCH ×4 (06:51→21:10)
[2017-01-12 07:04] LABS: Erythrocyte Sedimentation Rate 23 mm/hr (0-15)
[2017-01-12] MEDS: glipiZIDE 5 MG TAB.XL.24H PO SCH ×2 (07:19→17:25)
[2017-01-12] MEDS: PANTOPRAZOLE 40 MG TABLET PO SCH (07:19)
[2017-01-12] MEDS: ENOXAPARIN 40 MG/0.4 ML SYRINGE SQ SCH (08:33)
[2017-01-12] MEDS: MAGNESIUM OXIDE 400 MG TABLET PO SCH (08:33)
[2017-01-12] MEDS: LISINOPRIL 5 MG TABLET PO SCH (08:33)
[2017-01-12] MEDS: LACTOBACILLUS 1 CAPSULE PO SCH (08:34)
[2017-01-12] MEDS: VANCOMYCIN 1,500 MG in 0.9 % SODIUM CHLORIDE 500 ML IV SCH ×2 (09:54→22:09)
--- NOTE | 2017-01-12 09:54 | Internal Med Progress Note ---
Medical - PN: Subj Patient information: Note initiated : 01/12/17 at 9:45 am Service Date, if different from initiated Date: [] Patient: Jason Gonzales 66 y/o M admitted on 01/10/17 for wound to left foot. Chief Complaint: [] Interval history: January 10, 2017: History of present illness: Mr. Gonzales is a 66 year old male ith a history of type 2 diabetes for more than 20 years. He says he really has had no significant other medical issues that he is aware of. He did develop diabetic peripheral neuropathy over the last 2 years, so has decreased sensation of his feet. In October of this year he said he was walking around and some rubber boots, and subsequently noticed a "blood blister" of his left foot. He popped it and then covered it with a Band- Aid. He thought he did okay but later that month he got the flu and went in to see his doctor. He has to stop to check his foot and apparently there was pus coming out of the opening. He was then admitted to [facility] in [place] for 2 weeks of IV antibiotics. He then was sent home, and came in twice a day for twice a day IV antibiotics, we believe Zosyn and vancomycin. He has been getting wound care to her 3 days a week, but says he noticedover the last week he had some increased discomfort and increased swelling of his foot. He went to see his doctor today, who then referred him down to see Dr. Colorado of wound care. Dr. Colorado looked at his foot, and was concerned about an underlying abscess andor osteomyelitis. The patient was examined in the emergency room, and noticed to have a round ulcer on the plantar surface of the left foot with significant bloody drainage. There was surrounding cellulitis and edema. He is, however, afebrile White blood cell count is normal. Sedimentation rate is mildly elevated. The patient notes that over the last few years he had stopped monitoring his diabetes very closely, and prior to hospital admission in November he had blood sugars in the 200-300 range. However normally, blood sugars run less than 150. Otherwise, he denies fever or chills, headaches or dizziness new eye or ear symptoms. He does have chronic blurry vision, and chronic tinnitus. Does wear hearing aids. He denies trouble chewing or swallowing, and denies sore throat or cough. He denies chest pain or palpitations, swollen glands, shortness of breath, abdominal pain, nausea or vomiting or diarrhea, constipation He does have chronic urinary frequency but has never seen a specialist for that. January 11: -today, he patient says he is feelingpretty well. He still notes some soreness in his left posterior ankle and leg area, and less so in his foot. The foot and ankle are still swollen. - Otherwise, he says he feels fine. He denies fever or chills, headaches or dizziness, chest pain or palpitations, shortness of breath, abdominal pain.he denies dysuria. -He does report several loose stools last night, and one this morning, without abdominal cramping or bright red blood per rectum. Medication list from his November 25 discharge hospital records: Atorvastatin 40 mg daily, Flomax 0.4 mg daily, glipizide 10 mg daily, Lantus 30 unitsdaily, lisinopril 2.5 mg daily, omeprazole daily this does not coincide with the medication list the patient gave us. January 12: Pt seen examined, sitting comfortably in bed, no acute complaints, awaiting eval by Dr Colorado. The patient anxious to go home hopefully tomorrow , Labs reveiwed, glucose ok, pt MRI shows abscess but no cellulitis, Pts previous discharge summary reviewed, noted that he had DM ulcer, no Osteomylelitso n previous MRI, but concern for possible fluid around the 5th MTP which may be septic arthritis, however it seems that on this MRI there is no evidence of septic arthritis, His markers of inflammation are also much improved. Pertinent ROS: Denies headache, dizziness Denies chest pain, palpitations Denies cough or shortness of breath Denies abdominal pain, nausea or vomiting. - Constitutional Vitals: Vital Signs Temp Pulse Resp BP Pulse Ox 97.3 F 70 16 151/92 99 01/12/17 06:47 01/12/17 06:47 01/12/17 06:47 01/12/17 06:47 01/12/17 06:47 Period Temp Pulse Resp BP Sys/Barney Pulse Ox Last 24 Hr 97.2 F-98.2 F 70-73 14-16 115-151/67-92 96-99 Intake and Output 01/11/17 01/12/17 01/12/17 21:59 05:59 13:59 Intake Total 2029 500 / 500 220 / 220 Output Total 850 / 850 1525 / 1525 475 / 475 Balance 1180 / 1180 -1025 / -1025 -255 / -255 Weight 207 lb Intake & Output: Intake & Output 01/11/17 01/12/17 01/12/17 21:59 05:59 13:59 Intake Total 2029 500 / 500 220 / 220 Output Total 850 / 850 1525 / 1525 475 / 475 Balance 1180 / 1180 -1025 / -1025 -255 / -255 Weight 207 lb Intake: IV 1210 / 1210 500 / 500 Primaxin 500 mg In Sodium 200 / 200 Chloride 0.9% 100 ml @ 100 mls/hr IV Q8H [facility] Rx# :[id number] Potassium Chloride 20 Meq 1010 / 1010 In Sodium Chloride 0.45% 1,000 ml @ 100 mls/hr IV .Q10H6M [facility] Rx#: [id number] Vancomycin 1,500 mg In 500 / 500 Sodium Chloride 0.9% 500 ml @ 333.3 mls/hr IV Q12H [facility] Rx#:[id number] Oral 820 / 820 220 / 220 Output: Void Amount 850 / 850 1525 / 1525 475 / 475 Other: Meal Dinner Breakfast Percent of Meal Consumed 100% 100% Feeding Ability Independent Independent # Voids 2 # Bowel Movements 1 Exam: Constitutional; Afebrile, cooperative, alert, not in distress. Eyes- No icterus, , No periorbital swelling Ears- Ext ear normal, hearing normal to conversation. Neck- Midline trachea, supple Respiratory system: Air Entry equal on both sides, No crackles or wheezing, no rhonchi. CVS- Rate rhythm regular, S1,S2 heard, no gallop, no rub. Abdomen- Soft nontender abdomen, no organomegaly, no tenderness, no guarding or rigidity, PROOF OPERATOR- AOOx3, moving all extremities, no gross focal deficit noted. Medical - PN: Obj Da - Labs CBC & Chem 7: 01/12/17 05:00 01/12/17 05:00 Labs: Abnormal Lab Results 01/12/17 01/12/17 01/12/17 08:02 05:00 05:00 WBC 4.1 L RBC 4.14 L Hgb 12.8 L Hct 37.5 L MPV 7.2 L Eos % (Auto) 12.6 H Lymph # 1.3 L ESR 23 H Glucose 110 H Hemoglobin A1c Vancomycin Trough 17.3 H 01/11/17 01/10/17 03:39 19:58 WBC RBC 4.18 L Hgb 12.8 L Hct 38.0 L MPV Eos % (Auto) 9.4 H Lymph # 1.2 L ESR 18 H Glucose Hemoglobin A1c 7.7 H Vancomycin Trough Meds: Medications Acetaminophen (Tylenol) 650 mg PO Q6HP PRN PRN Reason: PAIN/FEVER > 101 Acetaminophen/Hydrocodone Bitart ([place] 5/325mg) 1 tab PO Q4HP PRN PRN Reason: Pain Atorvastatin Calcium (Lipitor) 40 mg PO HS [facility] Last Admin: 01/11/17 20:50 Dose: 40 mg Dextrose (Dextrose 50%) 0 ml IV UD PRN PRN Reason: Hypoglycemia Diagnostic Test (Pha) (Accu-Chek) 1 each FS ACHS [facility] Last Admin: 01/12/17 06:50 Dose: 1 each Docusate Sodium (Colace) 100 mg PO BID PRN PRN Reason: Constipation Enoxaparin Sodium (Lovenox) 40 mg SQ DAILY [facility] Last Admin: 01/12/17 08:33 Dose: 40 mg Glipizide (Glucotrol Xl) 5 mg PO BIDAC [facility] Last Admin: 01/12/17 07:19 Dose: 5 mg Potassium Chloride 20 meq/ (Sodium Chloride) 1,010 mls @ 100 mls/hr IV .Q10H6M [facility] Last Admin: 01/12/17 02:45 Dose: 100 mls/hr Imipenem/Cilastatin Sodium 500 (mg/ Sodium Chloride) 100 mls @ 100 mls/hr IV Q8H [facility] Last Admin: 01/12/17 03:44 Dose: 100 mls/hr Vancomycin HCl 1,500 mg/ (Sodium Chloride) 500 mls @ 333.3 mls/hr IV Q12H [facility] Last Infusion: 01/11/17 22:57 Dose: Infused Gentamicin Sulfate 40 mg/Clindamycin Phosphate 300 mg/Bacitracin 25,000 unit/ Sodium Chloride 503 mls @ 1 mls/hr IRR BID [facility] Last Admin: 01/11/17 21:42 Dose: Not Given Insulin Glargine (Lantus) 26 unit SQ QNOON [facility] Last Admin: 01/11/17 13:19 Dose: 26 unit Insulin Human Lispro (Humalog) 0 unit SQ ACHS [facility] PRN Reason: Protocol Last Admin: 01/12/17 06:51 Dose: Not Given Lactobacillus Rhamnosus (Culturelle) 1 cap PO DAILY [facility] Last Admin: 01/12/17 08:34 Dose: 1 cap Lisinopril (Zestril) 2.5 mg PO DAILY [facility] Last Admin: 01/12/17 08:33 Dose: 2.5 mg Magnesium Hydroxide (Milk Of Magnesia) 30 ml PO DAILYP PRN PRN Reason: Constipation Magnesium Oxide (Magnesium Oxide) 400 mg PO DAILY [facility] Last Admin: 01/12/17 08:33 Dose: 400 mg Naloxone HCl (Narcan) 0.1 mg IV Q2MIN PRN PRN Reason: Opiate Reversal Ondansetron HCl (Zofran Odt) 4 mg SL Q6HP PRN PRN Reason: Nausea And Vomiting Pantoprazole Sodium (Protonix) 40 mg PO QAMAC [facility] Last Admin: 01/12/17 07:19 Dose: 40 mg Sodium Chloride (Saline Flush) 10 ml IV Q8 [facility] Last Admin: 01/12/17 05:46 Dose: Not Given Vancomycin HCl (Vancomycin Per Pharmacy) 1 order IV UD [facility] Medical - PN: A/P - Time Spent With Patient Total time spent is greater than 50% in coordination of care (as documented) at patient's floor/unit and/or counseling patient: - Narrative A/P Narrative: a/p DM Ulcer: Abscess noted on MRI, on IV vanco and impenum (was treated with vanco and cefepime, culture were neg) Await Dr Alexus saldaña today, continue same. Would need cultures from abscess or wound to descalate antibiotic therapy. T2DM: Glucose ok, continue lantus and glipizide as home dose. HTN BP high this AM but overall has been well controlled, continue to monitor. Full code DVT [facility] Medical - PN: Qual - Stroke Symptom Onset Unknown: No - VTE Deep Vein Thrombosis/Pulmonary Embolism Present on Admission: No
[2017-01-12] MEDS: GENTAMICIN SULFATE 40 MG, CLINDAMYCIN 300 MG, BACITRACIN 25,000 UNIT in SODIUM CHLORIDE... IRR SCH ×2 (10:40→19:54)
--- NOTE | 2017-01-12 10:54 | General Surgery Progress Note ---
Subjective Patient reports: other (Uneventful night ) Narrative: Note initiated : 01/12/17 at 10:51 am Service Date, if different from initiated Date: [] Patient: Jason Gonzales 66 y/o M admitted on 01/10/17 for wound to left foot. Chief Complaint: [] Objective Temp Pulse Resp BP Pulse Ox 97.3 F 70 16 151/92 99 01/12/17 06:47 01/12/17 06:47 01/12/17 06:47 01/12/17 06:47 01/12/17 06:47 AVSS. No changes in JACY. L/E RESOLVING inflammatory changes Left foot . IMPROVING MRI reviewed . NO evidence of osteomyelitis. - Additional Data Intake & Output - Last 24 hours: Intake & Output 01/10/17 01/11/17 01/12/17 01/13/17 05:59 05:59 05:59 05:59 Intake Total 1060 / 1060 3270 / 3270 220 / 220 Output Total 976 / 976 2725 / 2725 475 / 475 Balance 84 / 84 545 / 545 -255 / -255 Weight 214 lb 207 lb - Labs 01/12/17 05:00 01/12/17 05:00 Diabetes panel 01/12/17 Range/Units 05:00 Sodium 143 (133-145) mmol/L Potassium 4.5 (3.3-5.1) mmol/L Chloride 106 (96-108) mmol/L Carbon Dioxide 25 (22-30) mmol/L BUN 13 (8-23) mg/dl Creatinine 1.0 (0.7-1.2) mg/dl Glucose 110 H (70-105) mg/dL Calcium 9.0 (8.6-10.4) mg/dl AST 12 (0-37) U/l ALT 12 (0-40) U/l Alkaline Phosphatase 48 (39-117) U/L Total Protein 6.3 (5.9-8.4) gm/dL Albumin 3.7 (3.2-5.2) gm/dL Triglycerides 112 (<150) mg/dl Calcium panel 01/12/17 Range/Units 05:00 Calcium 9.0 (8.6-10.4) mg/dl Phosphorus 3.7 (2.7-4.5) mg/dL Albumin 3.7 (3.2-5.2) gm/dL Pituitary panel 01/12/17 Range/Units 05:00 Sodium 143 (133-145) mmol/L Potassium 4.5 (3.3-5.1) mmol/L Chloride 106 (96-108) mmol/L Carbon Dioxide 25 (22-30) mmol/L BUN 13 (8-23) mg/dl Creatinine 1.0 (0.7-1.2) mg/dl Glucose 110 H (70-105) mg/dL Calcium 9.0 (8.6-10.4) mg/dl Adrenal panel 01/12/17 Range/Units 05:00 Sodium 143 (133-145) mmol/L Potassium 4.5 (3.3-5.1) mmol/L Chloride 106 (96-108) mmol/L Carbon Dioxide 25 (22-30) mmol/L BUN 13 (8-23) mg/dl Creatinine 1.0 (0.7-1.2) mg/dl Glucose 110 H (70-105) mg/dL Calcium 9.0 (8.6-10.4) mg/dl Total Bilirubin 0.2 (0.0-1.0) mg/dL AST 12 (0-37) U/l ALT 12 (0-40) U/l Alkaline Phosphatase 48 (39-117) U/L Total Protein 6.3 (5.9-8.4) gm/dL Albumin 3.7 (3.2-5.2) gm/dL Assessment and Plan (1) Sepsis affecting skin Problem details: SATISFACTORY progress and response to local wound care and IV antibiotics. Ready for OR debridement tomorrow Friday01/13/2017. ANTICIPATE discharge after surgery and out patient followup with Infectious Disease at [facility] and wound care at [facility]. Status: Acute Current Visit: Yes (2) Septic arthritis of interphalangeal joint of toe of left foot Status: Acute Current Visit: Yes - Time Spent With Patient Total time spent is greater than 50% in coordination of care (as documented) at patient's floor/unit and/or counseling patient:
[2017-01-12] MEDS: INSULIN GLARGINE, HUMAN 1 UNIT/0.01 ML SQ SCH (11:53)
[2017-01-12] MEDS: ATORVASTATIN 20 MG TABLET PO SCH (21:11)
[2017-01-13] MEDS: IMIPENEM/CILASTATIN SODIUM 500 MG in 0.9 % SODIUM CHLORIDE 100 ML IV SCH ×3 (03:24→21:05)
[2017-01-13] MEDS: 0.9 % SODIUM CHLORIDE 10 ML SYRINGE IV SCH ×3 (05:24→21:08)
[2017-01-13 07:30] LABS: Basophils # (Auto) 0 K/mcL (0.0-0.3); Basophils % (Auto) 0.7 % (0.0-2.0); Eosinophils # (Auto) 0.5 K/mcL (0.0-0.7); Eosinophils % (Auto) 10.5 % (0.0-7.0); Granulocytes % (Auto) 54.4 % (38.0-78.0); Lymphocytes # (Auto) 1.4 K/mcL (1.5-4.8); Lymphocytes % (Auto) 27.6 % (15.5-49.0); Mean Cell Volume 91.2 fL (80.0-100.0); Mean Corpuscular HGB Conc 33.9 g/dL (31.0-36.0); Mean Corpuscular Hemoglobin 30.9 pg (26.0-34.0); Monocytes # (Auto) 0.3 K/mcL (0.1-0.9); Monocytes % (Auto) 6.8 % (1.0-12.0); Platelet Count 216 K/mcL (140-440); RBC 4.35 M/mcL (4.50-5.90); Red Cell Distribution Width 14.5 % (11.5-14.5)
[2017-01-13] MEDS: POTASSIUM CHLORIDE 20 MEQ in 0.45 % SODIUM CHLORIDE 1,000 ML IV SCH ×4 (07:43→16:04)
[2017-01-13] MEDS: PANTOPRAZOLE 40 MG TABLET PO SCH (07:44)
[2017-01-13] MEDS: INSULIN LISPRO 1 UNIT/0.01 ML UNIT SQ SCH ×4 (07:44→21:20)
[2017-01-13] MEDS: MAGNESIUM OXIDE 400 MG TABLET PO SCH (07:44)
[2017-01-13] MEDS: LACTOBACILLUS 1 CAPSULE PO SCH (07:44)
[2017-01-13] MEDS: glipiZIDE 5 MG TAB.XL.24H PO SCH ×2 (07:44→17:02)
[2017-01-13 08:27] LABS: ALT/SGPT 12 U/l (0-40); Albumin 3.7 gm/dL (3.2-5.2); Albumin/Globulin Ratio 1.2 (1.0-2.3); Alkaline Phosphatase 52 U/L (39-117); Bilirubin,Direct < 0.2 mg/dL (0.0-0.3); Blood Urea Nitrogen 12 mg/dl (8-23); Gamma Glutamyl Transpeptidase 18 U/L (8-61); Uric Acid 5.7 mg/dL (2.5-8.0)
[2017-01-13] MEDS: LISINOPRIL 5 MG TABLET PO SCH (08:56)
[2017-01-13] MEDS: ENOXAPARIN 40 MG/0.4 ML SYRINGE SQ SCH (08:56)
[2017-01-13] MEDS: VANCOMYCIN 1,500 MG in 0.9 % SODIUM CHLORIDE 500 ML IV SCH (09:52)
[2017-01-13] MEDS: GENTAMICIN SULFATE 40 MG, CLINDAMYCIN 300 MG, BACITRACIN 25,000 UNIT in SODIUM CHLORIDE... IRR SCH (11:00)
[2017-01-13 11:02] LABS: Erythrocyte Sedimentation Rate 20 mm/hr (0-15)
[2017-01-13] MEDS ORDERED: GENTAMICIN SULFATE 800 MG/20 ML VIAL IR ONE (11:52)
[2017-01-13] MEDS ORDERED: BACITRACIN 50,000 UNIT VIAL IR ONE (11:52)
[2017-01-13] MEDS ORDERED: CLINDAMYCIN 600 MG/4 ML VIAL IR ONE (11:52)
[2017-01-13] MEDS ORDERED: LIDOCAINE 1% 20 ML, BUPIVACAINE 0.5% 20 ML SQ ONE (11:52)
[2017-01-13] MEDS ORDERED: MIDAZOLAM 2 MG/2 ML VIAL IV ONE (12:20)
[2017-01-13] MEDS ORDERED: fentaNYL 100 MCG/2 ML VIAL IV ONE (12:20)
--- NOTE | 2017-01-13 13:27 | Internal Med Progress Note ---
Medical - PN: Subj Patient information: Note initiated : 01/13/17 at 1:25 pm Service Date, if different from initiated Date: [] Patient: Jason Gonzales 66 y/o M admitted on 01/10/17 for Wound to Left Foot/ Cellulitis of Left Lower Limb. Chief Complaint: [] Interval history: January 10, 2017: History of present illness: Mr. Gonzales is a 66 year old male ith a history of type 2 diabetes for more than 20 years. He says he really has had no significant other medical issues that he is aware of. He did develop diabetic peripheral neuropathy over the last 2 years, so has decreased sensation of his feet. In October of this year he said he was walking around and some rubber boots, and subsequently noticed a "blood blister" of his left foot. He popped it and then covered it with a Band- Aid. He thought he did okay but later that month he got the flu and went in to see his doctor. He has to stop to check his foot and apparently there was pus coming out of the opening. He was then admitted to [facility] in [place] for 2 weeks of IV antibiotics. He then was sent home, and came in twice a day for twice a day IV antibiotics, we believe Zosyn and vancomycin. He has been getting wound care to her 3 days a week, but says he noticedover the last week he had some increased discomfort and increased swelling of his foot. He went to see his doctor today, who then referred him down to see Dr. Colorado of wound care. Dr. Colorado looked at his foot, and was concerned about an underlying abscess andor osteomyelitis. The patient was examined in the emergency room, and noticed to have a round ulcer on the plantar surface of the left foot with significant bloody drainage. There was surrounding cellulitis and edema. He is, however, afebrile White blood cell count is normal. Sedimentation rate is mildly elevated. The patient notes that over the last few years he had stopped monitoring his diabetes very closely, and prior to hospital admission in November he had blood sugars in the 200-300 range. However normally, blood sugars run less than 150. Otherwise, he denies fever or chills, headaches or dizziness new eye or ear symptoms. He does have chronic blurry vision, and chronic tinnitus. Does wear hearing aids. He denies trouble chewing or swallowing, and denies sore throat or cough. He denies chest pain or palpitations, swollen glands, shortness of breath, abdominal pain, nausea or vomiting or diarrhea, constipation He does have chronic urinary frequency but has never seen a specialist for that. January 11: -today, he patient says he is feelingpretty well. He still notes some soreness in his left posterior ankle and leg area, and less so in his foot. The foot and ankle are still swollen. - Otherwise, he says he feels fine. He denies fever or chills, headaches or dizziness, chest pain or palpitations, shortness of breath, abdominal pain.he denies dysuria. -He does report several loose stools last night, and one this morning, without abdominal cramping or bright red blood per rectum. Medication list from his November 25 discharge hospital records: Atorvastatin 40 mg daily, Flomax 0.4 mg daily, glipizide 10 mg daily, Lantus 30 unitsdaily, lisinopril 2.5 mg daily, omeprazole daily this does not coincide with the medication list the patient gave us. January 12: Pt seen examined, sitting comfortably in bed, no acute complaints, awaiting eval by Dr Colorado. The patient anxious to go home hopefully tomorrow , Labs reveiwed, glucose ok, pt MRI shows abscess but no cellulitis, Pts previous discharge summary reviewed, noted that he had DM ulcer, no Osteomylelitso n previous MRI, but concern for possible fluid around the 5th MTP which may be septic arthritis, however it seems that on this MRI there is no evidence of septic arthritis, His markers of inflammation are also much improved. January 13: pt seen examined, no acute overnight events, doing well, tolerating po well, no complaints, He is due for Sx today, discussed with Dr Vaughan, plan to monitor for 1 day post op and then likely d/c to home in the morning. Labs reviewed Pertinent ROS: Denies headache, dizziness Denies chest pain, palpitations Denies cough or shortness of breath Denies abdominal pain, nausea or vomiting. - Constitutional Vitals: Vital Signs Temp Pulse Resp BP Pulse Ox 97.8 F 74 18 131/75 98 01/13/17 11:58 01/13/17 03:25 01/13/17 11:58 01/13/17 11:58 01/13/17 11:58 Period Temp Pulse Resp BP Sys/Barney Pulse Ox Last 24 Hr 97.3 F-97.8 F 70-75 16-20 109-156/64-80 96-98 Intake and Output 01/12/17 01/13/17 01/13/17 21:59 05:59 13:59 Intake Total 740 / 740 170 / 170 Output Total 1150 / 1150 1575 / 1575 1050 / 1050 Balance -410 / -410 -1405 / -1405 -1050 / -1050 Weight 208 lb Intake & Output: Intake & Output 01/12/17 01/13/17 01/13/17 21:59 05:59 13:59 Intake Total 740 / 740 170 / 170 Output Total 1150 / 1150 1575 / 1575 1050 / 1050 Balance -410 / -410 -1405 / -1405 -1050 / -1050 Weight 208 lb Intake: IV 200 / 200 Primaxin 500 mg In Sodium 200 / 200 Chloride 0.9% 100 ml @ 100 mls/hr IV Q8H [facility] Rx# :[id number] Oral 540 / 540 170 / 170 Output: Void Amount 1150 / 1150 1575 / 1575 1050 / 1050 Other: Meal Dinner snack - sandwhich, cheese stick Percent of Meal Consumed 100% 100% Feeding Ability Independent # Voids 1 Exam: Constitutional; Afebrile, cooperative, alert, not in distress. Eyes- No icterus, , No periorbital swelling Ears- Ext ear normal, hearing normal to conversation. Neck- Midline trachea, supple Respiratory system: Air Entry equal on both sides, No crackles or wheezing, no rhonchi. CVS- Rate rhythm regular, S1,S2 heard, no gallop, no rub. Abdomen- Soft nontender abdomen, no organomegaly, no tenderness, no guarding or rigidity, INSURANCE EXAMINING CLERK- AOOx3, moving all extremities, no gross focal deficit noted. Medical - PN: Obj Da - Labs CBC & Chem 7: 01/13/17 05:30 01/13/17 05:30 Labs: Abnormal Lab Results 01/13/17 01/13/17 01/13/17 07:55 05:30 05:30 WBC RBC 4.35 L Hgb 13.4 L Hct 39.6 L MPV Eos % (Auto) 10.5 H Lymph # 1.4 L ESR 20 H Glucose 158 H Hemoglobin A1c Triglycerides 185 H Vancomycin Trough 20.3 H* 01/12/17 01/12/17 01/12/17 08:02 05:00 05:00 WBC 4.1 L RBC 4.14 L Hgb 12.8 L Hct 37.5 L MPV 7.2 L Eos % (Auto) 12.6 H Lymph # 1.3 L ESR 23 H Glucose 110 H Hemoglobin A1c Triglycerides Vancomycin Trough 17.3 H 01/11/17 01/10/17 03:39 19:58 WBC RBC 4.18 L Hgb 12.8 L Hct 38.0 L MPV Eos % (Auto) 9.4 H Lymph # 1.2 L ESR 18 H Glucose Hemoglobin A1c 7.7 H Triglycerides Vancomycin Trough Meds: Medications Acetaminophen (Tylenol) 650 mg PO Q6HP PRN PRN Reason: PAIN/FEVER > 101 Acetaminophen/Hydrocodone Bitart ([place] 5/325mg) 1 tab PO Q4HP PRN PRN Reason: Pain Atorvastatin Calcium (Lipitor) 40 mg PO HS [facility] Last Admin: 01/12/17 21:11 Dose: 40 mg Dextrose (Dextrose 50%) 0 ml IV UD PRN PRN Reason: Hypoglycemia Diagnostic Test (Pha) (Accu-Chek) 1 each FS ACHS [facility] Last Admin: 01/13/17 07:43 Dose: 1 each Docusate Sodium (Colace) 100 mg PO BID PRN PRN Reason: Constipation Enoxaparin Sodium (Lovenox) 40 mg SQ DAILY [facility] Last Admin: 01/13/17 08:56 Dose: 40 mg Glipizide (Glucotrol Xl) 5 mg PO BIDAC [facility] Last Admin: 01/13/17 07:44 Dose: Not Given Potassium Chloride 20 meq/ (Sodium Chloride) 1,010 mls @ 100 mls/hr IV .Q10H6M [facility] Last Admin: 01/13/17 07:43 Dose: Not Given Imipenem/Cilastatin Sodium 500 (mg/ Sodium Chloride) 100 mls @ 100 mls/hr IV Q8H [facility] Last Admin: 01/13/17 03:24 Dose: 100 mls/hr Gentamicin Sulfate 40 mg/Clindamycin Phosphate 300 mg/Bacitracin 25,000 unit/ Sodium Chloride 503 mls @ 1 mls/hr IRR BID [facility] Last Admin: 01/13/17 11:00 Dose: 1 mls/hr Vancomycin HCl 1,500 mg/ (Sodium Chloride) 500 mls @ 333.3 mls/hr IV Q24H [facility] Insulin Glargine (Lantus) 26 unit SQ QNOON [facility] Last Admin: 01/12/17 11:53 Dose: 26 unit Insulin Human Lispro (Humalog) 0 unit SQ ACHS [facility] PRN Reason: Protocol Last Admin: 01/13/17 07:44 Dose: Not Given Lactobacillus Rhamnosus (Culturelle) 1 cap PO DAILY [facility] Last Admin: 01/13/17 07:44 Dose: Not Given Lisinopril (Zestril) 2.5 mg PO DAILY [facility] Last Admin: 01/13/17 08:56 Dose: 2.5 mg Magnesium Hydroxide (Milk Of Magnesia) 30 ml PO DAILYP PRN PRN Reason: Constipation Magnesium Oxide (Magnesium Oxide) 400 mg PO DAILY [facility] Last Admin: 01/13/17 07:44 Dose: Not Given Naloxone HCl (Narcan) 0.1 mg IV Q2MIN PRN PRN Reason: Opiate Reversal Ondansetron HCl (Zofran Odt) 4 mg SL Q6HP PRN PRN Reason: Nausea And Vomiting Pantoprazole Sodium (Protonix) 40 mg PO QAMAC [facility] Last Admin: 01/13/17 07:44 Dose: Not Given Sodium Chloride (Saline Flush) 10 ml IV Q8 [facility] Last Admin: 01/13/17 05:24 Dose: Not Given Vancomycin HCl (Vancomycin Per Pharmacy) 1 order IV [facility] - PN: A/P - Time Spent With Patient Total time spent is greater than 50% in coordination of care (as documented) at patient's floor/unit and/or counseling patient: - Narrative A/P Narrative: a/p DM Ulcer: Abscess noted on MRI, on IV vanco and impenum (was treated with vanco and cefepime, culture were neg) s/p debridement in the OR today. given good drainange of the abscess, will d/c home on oral agents in AM as per wound care consult T2DM: Glucose ok, continue lantus and glipizide as home dose. HTN BP well controlled, Full code DVT [facility] - PN: Qual - Stroke Symptom Onset Unknown: No - VTE Deep Vein Thrombosis/Pulmonary Embolism Present on Admission: No
[2017-01-13] MEDS ORDERED: DEXTROSE 50% 50 ML VIAL IV PRN (13:43)
[2017-01-13] MEDS ORDERED: VANCOMYCIN PER PHARMACY IV SCH (13:43)
[2017-01-13] MEDS ORDERED: ONDANSETRON ODT 4 MG TABLET SL PRN (13:43)
[2017-01-13] MEDS ORDERED: DOCUSATE SODIUM 100 MG CAPSULE PO PRN (13:43)
[2017-01-13] MEDS ORDERED: ACETAMINOPHEN 325 MG TABLET PO PRN (13:43)
[2017-01-13] MEDS ORDERED: MAGNESIUM HYDROXIDE 30 ML ORAL.SUSP PO PRN (13:43)
[2017-01-13] MEDS ORDERED: HYDROcodone/APAP 5/325MG TABLET PO PRN (13:43)
--- NOTE | 2017-01-13 14:42 | General Surgery Procedure Note ---
Date of procedure: Note initiated : 01/13/17 at 2:38 pm Service Date, if different from initiated Date: [] Pre-op diagnosis: csssi / Sepsis DFU [place] 2 Left foot 5 th toe MPJ area Post-op diagnosis: same Procedure: Wound Exploration / Surgical Excisional Debridement with FASCIOTOMIES / Versajet US irrigation and Open Packing Final wound dimensions Triangular wound 4 x 4 x 4 CM with depth of 0.5 CM NO tracks and No tunnels, NO undermining Findings: Multiple sinuses over Left 5 th toe MPJ area on dorsal, lateral and on plantar site, With in the resolved cellulitis site. Small abscesses dorsal surface and between 4 / 5 metatarsal bones Anesthesia: MAC Surgeon: Andrey Colorado Estimated blood loss: 5 Pathology: other (Tissue for pathology and culture / sensitvities) Description of procedure: Excisional Debridement, Fasciotomy , Versajet US guided lavage / irrigation and stabilization of wound with open packing Condition: stable Disposition: floor (Operation well tolerated.)
[2017-01-13] MEDS: INSULIN GLARGINE, HUMAN 1 UNIT/0.01 ML SQ SCH (15:14)
[2017-01-13] MEDS ORDERED: VANCOMYCIN 1,500 MG in 0.9 % SODIUM CHLORIDE 500 ML IV SCH ×2 (17:00)
[2017-01-13] MEDS ORDERED: IMIPENEM/CILASTATIN SODIUM 500 MG in 0.9 % SODIUM CHLORIDE 100 ML IV SCH (20:00)
[2017-01-13] MEDS ORDERED: ATORVASTATIN 20 MG TABLET PO SCH (21:00)
[2017-01-14] MEDS: POTASSIUM CHLORIDE 20 MEQ in 0.45 % SODIUM CHLORIDE 1,000 ML IV SCH ×3 (01:41→10:32)
[2017-01-14] MEDS: IMIPENEM/CILASTATIN SODIUM 500 MG in 0.9 % SODIUM CHLORIDE 100 ML IV SCH (05:26)
[2017-01-14] MEDS: 0.9 % SODIUM CHLORIDE 10 ML SYRINGE IV SCH (05:29)
[2017-01-14 06:21] LABS: Basophils # (Auto) 0 K/mcL (0.0-0.3); Basophils % (Auto) 0.7 % (0.0-2.0); Eosinophils # (Auto) 0.4 K/mcL (0.0-0.7); Eosinophils % (Auto) 9.9 % (0.0-7.0); Granulocytes % (Auto) 52.5 % (38.0-78.0); Lymphocytes # (Auto) 1.3 K/mcL (1.5-4.8); Lymphocytes % (Auto) 29.4 % (15.5-49.0); Mean Cell Volume 91.3 fL (80.0-100.0); Mean Corpuscular HGB Conc 34.3 g/dL (31.0-36.0); Mean Corpuscular Hemoglobin 31.3 pg (26.0-34.0); Monocytes # (Auto) 0.3 K/mcL (0.1-0.9); Monocytes % (Auto) 7.5 % (1.0-12.0); Platelet Count 190 K/mcL (140-440); RBC 4.01 M/mcL (4.50-5.90); Red Cell Distribution Width 14.1 % (11.5-14.5)
[2017-01-14] MEDS ORDERED: PANTOPRAZOLE 40 MG TABLET PO SCH (07:30)
[2017-01-14] MEDS: INSULIN LISPRO 1 UNIT/0.01 ML UNIT SQ SCH ×2 (07:42→11:43)
--- NOTE | 2017-01-14 08:02 | General Surgery Progress Note ---
Subjective Patient reports: no new complaints, other (POD # 1 . Uneventful progress. NO bleeding from surgical site. Dressing CDI. ) Narrative: Note initiated : 01/14/17 at 8:00 am Service Date, if different from initiated Date: [] Patient: Jason Gonzales 66 y/o M admitted on 01/10/17 for Wound to Left Foot/ Cellulitis of Left Lower Limb. Chief Complaint: [] Objective Temp Pulse Resp BP Pulse Ox 97.4 F 83 16 145/80 98 01/14/17 07:19 01/14/17 07:19 01/14/17 07:19 01/14/17 07:19 01/14/17 07:19 AVSS. No changes JACY. Lab results Unremarkable. C/S Negative. L/E. LLE. No NV deficits. Toes PWD Dressings CDI - Additional Data Intake & Output - Last 24 hours: Intake & Output 01/12/17 01/13/17 01/14/17 01/15/17 05:59 05:59 05:59 05:59 Intake Total 3370 / 3370 3890 / 3890 690 / 690 Output Total 2725 / 2725 3400 / 3400 3200 / 3200 Balance 645 / 645 490 / 490 -2510 / -2510 Weight 207 lb 208 lb 205 lb 8 oz - Labs 01/14/17 04:38 01/13/17 05:30 Diabetes panel 01/13/17 Range/Units 05:30 Sodium 141 (133-145) mmol/L Potassium 4.6 (3.3-5.1) mmol/L Chloride 106 (96-108) mmol/L Carbon Dioxide 25 (22-30) mmol/L BUN 12 (8-23) mg/dl Creatinine 1.0 (0.7-1.2) mg/dl Glucose 158 H (70-105) mg/dL Calcium 9.4 (8.6-10.4) mg/dl AST 15 (0-37) U/l ALT 12 (0-40) U/l Alkaline Phosphatase 52 (39-117) U/L Total Protein 6.8 (5.9-8.4) gm/dL Albumin 3.7 (3.2-5.2) gm/dL Triglycerides 185 H (<150) mg/dl Calcium panel 01/13/17 Range/Units 05:30 Calcium 9.4 (8.6-10.4) mg/dl Phosphorus 4.1 (2.7-4.5) mg/dL Albumin 3.7 (3.2-5.2) gm/dL Pituitary panel 01/13/17 Range/Units 05:30 Sodium 141 (133-145) mmol/L Potassium 4.6 (3.3-5.1) mmol/L Chloride 106 (96-108) mmol/L Carbon Dioxide 25 (22-30) mmol/L BUN 12 (8-23) mg/dl Creatinine 1.0 (0.7-1.2) mg/dl Glucose 158 H (70-105) mg/dL Calcium 9.4 (8.6-10.4) mg/dl Adrenal panel 01/13/17 Range/Units 05:30 Sodium 141 (133-145) mmol/L Potassium 4.6 (3.3-5.1) mmol/L Chloride 106 (96-108) mmol/L Carbon Dioxide 25 (22-30) mmol/L BUN 12 (8-23) mg/dl Creatinine 1.0 (0.7-1.2) mg/dl Glucose 158 H (70-105) mg/dL Calcium 9.4 (8.6-10.4) mg/dl Total Bilirubin 0.2 (0.0-1.0) mg/dL AST 15 (0-37) U/l ALT 12 (0-40) U/l Alkaline Phosphatase 52 (39-117) U/L Total Protein 6.8 (5.9-8.4) gm/dL Albumin 3.7 (3.2-5.2) gm/dL Assessment and Plan (1) Sepsis affecting skin Problem details: SATISFACTORY progress and response to local wound care and IV antibiotics. Ready for OR debridement tomorrow Friday01/13/2017. ANTICIPATE discharge after surgery and out patient followup with Infectious Disease at [facility] and wound care at [facility]. Status: Acute Current Visit: Yes (2) Septic arthritis of interphalangeal joint of toe of left foot Status: Acute Current Visit: Yes - Narrative A/P Narrative: Satisfactory postoperative progress. OK to D/C on PO antibiotics. Use FWW and OFF loading toes shoe when ambulating. Doxycycline 100 mg BID x 10 days and Bactrim DS 1 BID x 10 days. Out patient f/u at wound clinic on Friday01/17/2017 - Time Spent With Patient Total time spent is greater than 50% in coordination of care (as documented) at patient's floor/unit and/or counseling patient:
[2017-01-14] MEDS: glipiZIDE 5 MG TAB.XL.24H PO SCH (08:03)
[2017-01-14] MEDS ORDERED: LISINOPRIL 5 MG TABLET PO SCH (09:00)
[2017-01-14] MEDS ORDERED: MAGNESIUM OXIDE 400 MG TABLET PO SCH (09:00)
[2017-01-14] MEDS ORDERED: LACTOBACILLUS 1 CAPSULE PO SCH (09:00)
[2017-01-14] MEDS ORDERED: ENOXAPARIN 40 MG/0.4 ML SYRINGE SQ SCH (09:00)
[2017-01-14] MEDS ORDERED: ASPIRIN 325 MG ENTERIC COATED TABLET PO SCH (09:00)
--- NOTE | 2017-01-14 10:00 | Operative Note ---
DATE OF OPERATION: 01/13/2017 PREOPERATIVE DIAGNOSIS: Resolving sepsis syndrome, complicated skin and skin structure infection involving the left fifth toe MP joint, diabetic foot ulcer Downey 2. POSTOPERATIVE DIAGNOSIS: Resolving sepsis syndrome, complicated skin and skin structure infection involving the left fifth toe MP joint, diabetic foot ulcer Downey 2. OPERATION: 1. Wound exploration. 2. Surgical excision, debridement with fasciotomies. 3. Versa Jet ultrasound-guided irrigation and open packing. SPECIMENS OBTAINED: Tissue for pathology and tissue samples for gram stain and cultures. FINAL DIMENSIONS: Triangular wound 4 cm x 4 cm x 4 cm, maximum depth 0.5 cm. There were no tracts, no tunnels and no undermining. INTRAOPERATIVE FINDINGS: 1. Multiple sinuses involving the skin and subcutaneous tissue over the left fifth toe MP joint area on the dorsal lateral and plantar aspects. 2. Small abscesses on the dorsal surface between the fourth and fifth metatarsal bones. ANESTHESIA: MAC, Salary And Wage Administrator [employer] CRNA. SURGEON: Andrey Colorado MD ESTIMATED BLOOD LOSS: 5 ml. SPECIMENS: Tissue for pathology and cultures. PROCEDURE NOTE: After obtaining informed consent, patient was taken to the operating room. Timeout was called. Intravenous antibiotics were already started on the floor. The extremity was marked and signed earlier while in the holding area. The left leg was widely cleaned, prepped and draped from the knee down to the toes. Preoperative photograph was taken. We probed the open sinuses and found the tract connecting the sinuses. Appropriate photographs were taken. Local anesthetic, 1/4% Marcaine without epinephrine was widely injected around and under the site of proposed debridement. Using #15 scalpel blade a segment of skin was excised and the tracts were unroofed. We did this by keeping the open area on the dorsal aspect of the wound in lateralo aspect. Very carefully, the nonviable tissue was tangentially excised in stages until all the nonviable skin, subcutaneous tissue and fat was excised and healthy backbleeding was encountered from the surrounding tissues and depth. Proximally on the dorsal surface of the foot, small abscess areas were noted. A fasciotomy was carried out along the intraosseous planes and these abscesses were evacuated. Intelligence Engineer sample was sent for gram stain, cultures and anaerobic cultures. Copious irrigation of these wounds was carried out initially with normal saline. Later, we used 1 liter of normal saline mixed with 600 mg of clindamycin and 80 mg of gentamicin and 50,000 units of bacitracin solution. Ultrasound guided lavage irrigation was carried out and all the demarcating debris was washed away. Towards completion, the wound was looking clean and there was healthy backbleeding noted from the surrounding tissues and depth. Appropriate photographs were taken. We were now left with a triangular defect. This was stabilized by using 2-0 Vicryl sutures, everting mattress sutures were placed to stabilize the wound. Later the wound was again washed clean. There were no tracts, tunnels or undermining. We covered this wound with Xeroform gauze and reinforced this with a bolster of 1/4 inch iodoform gauze. This was further reinforced with AMD gauze, Kerlix bandage, ABD pad, Coban and LETY bandages respectively. Procedure was well tolerated. Blood loss was 5 mL. After completion of the procedure, I went out and spoke with patient's , [place]. VD:hortencia Job ID: [id number] Doc ID: [id number] Andrey LANG
--- NOTE | 2017-01-14 10:21 | Surgical Pathology Report ---
HISTOLOGY SPECIMEN MICROSCOPIC DIAGNOSIS SKIN AND SOFT TISSUE, LEFT FOOT WALL, EXCISION: -- ULCERERATED SKIN WITH ASSOCIATED DERMAL ACUTE AND CHRONIC INFLAMMATION CONSISTENT WITH ABSCESS. -- NO MALIGNANCY IDENTIFIED. (DMT:candie) CLINICAL HISTORY Wound left lateral foot. GROSS DESCRIPTION Received in formalin labeled with the patient information, is a karimi piece of skin 1.6 x 1.0 x 0.2 cm. On the skin surface extending to one edge is a 0.6 x 0.6 by less than 0.1 cm possible ulcerated area. The margin is inked black. The specimen is sectioned and entirely submitted - two cassettes with the ends in A1 and the remainder in A2. (SCB:candie) Electronically Signed by: Joce Huber M.D.
--- NOTE | 2017-01-14 10:57 | Discharge Summary ---
Medical - DS: Prov Patient information: Note initiated : 01/14/17 at 10:55 am Service Date, if different from initiated Date: [] Patient: Jason Gonzales 66 y/o M admitted on 01/10/17 for Wound to Left Foot/ Cellulitis of Left Lower Limb. Chief Complaint: [] Date of admission: 01/10/17 17:50 Discharge date: 01/14/17 Primary care physician: Kelvin Ovalles Admitting clinician: Chika Arredondo Consults: 01/10/17 20:51 Consult to Physician [CONS] Routine Comment: Consulting Provider: Andrey Colorado Reason For Exam: Physician to Consult Discharging clinician: Kandice Bradshaw Medical - DS: Meds - Discharge Medications Prescriptions: Doxycycline Hyclate 100 mg PO BID #20 capsule Sulfamethoxazole/Trimethoprim [Bactrim Ds Tablet] 1 each PO BID #20 tablet Active and Home Medications: Home Medications Aspirin/Acetaminophen/Caffeine [Excedrin Migraine Caplet] 1 each PO TIDP PRN 09/27 [History Confirmed 01/10/17 Last Taken 01/10/17 06:00] Insulin Glargine, Human [Lantus] 26 unit SQ QNOON 01/10/17 [History Confirmed Last Taken 01/10/17 12:00] L.acidoph,Paracasei, B.lactis [Probiotic] 1 each PO DAILY 01/10/17 [History Confirmed 01/10/17 Last Taken 01/09/17 18:00] Lisinopril [Zestril] 2.5 mg PO DAILY 01/10/17 [History Confirmed 01/10/17 Last Taken 01/09/17 18:00] Magnesium Oxide [Magnesium] 250 mg PO DAILY 01/10/17 [History Confirmed Last Taken 01/10/17 07:00] glipiZIDE [Glipizide ER] 10 mg PO QHS 01/10/17 [History Confirmed 01/10/17 Last Taken 01/10/17 06:00] Calcium Carb/Magnesium Hydrox [Rolaids Chewable Tablet] 2 tab PO PRN PRN [History Confirmed 01/12/17 Last Taken Unknown] Omeprazole [PriLOSEC] 40 mg PO ACB 01/12/17 [History Confirmed 01/12/17 Last Taken Unknown] Tamsulosin [Flomax] 0.4 mg PO DAILY 01/12/17 [History Confirmed 01/12/17 Last Taken Unknown] Medical - DS: Hosp Hospital course: Mr. Gonzales is a 66 year old male who presents to the hospital, from the wound care clinic for infected DM ulcer. The patient has long standing h/o DM, and developed a left foot ulcer after a wound. the patient was treated at a outside facility with IV antibiotics and wound debridement. Patient was being followed by Wound care after the ulcer was not improving, and pt was admitted to the hospital for same Infected DM ulcer and cellulitis. DM ulcer: Patient was treated with IV vanco and Imipenum for infected ulcer. He underwent MRI of the foot which showed abscess below the skin, but no Osteomyelitis. Dr hankins debrided the ulcer and cleaned the wound. Microbiology is pending. The patient will be discharged on bactrim and doxycycline at the request of the wound care physician. The patient other medical conditions remained stable during the hospital stay. He will be discharged home today, to follow up with wound care clinic in 3 days. The patient will also need to follow up with Infectious disease physician at [facility]. Discharge diagnosis: foot abscess, DM ulcer. - Time Spent with Patient Total time spent providing and/or coordinating discharge services: Less than 30 minutes Medical - DS: Exam - Constitutional Vitals: Vital Signs Temp Pulse Pulse Resp BP BP Pulse Ox 01/14/17 07:19 97.4 F 83 16 145/80 98 01/14/17 07:16 98 01/14/17 03:03 97.4 F 69 16 123/68 97 01/13/17 23:04 97.5 F 62 16 119/64 97 01/13/17 19:54 97.6 F 67 16 144/79 98 01/13/17 15:14 97.9 F 18 137/75 97 01/13/17 14:30 98.0 F 18 139/84 97 01/13/17 14:24 97.9 F 18 128/72 96 01/13/17 13:53 97.6 F 18 134/81 95 01/13/17 13:38 97.5 F 18 123/78 97 01/13/17 13:24 97.5 F 18 133/73 97 01/13/17 13:08 97.2 F 18 146/86 98 01/13/17 11:58 97.8 F 18 131/75 98 Intake and Output 01/13/17 01/14/17 01/14/17 21:59 05:59 13:59 Intake Total 240 / 240 1460 / 1460 120 / 120 Output Total 700 / 700 1450 / 1450 225 / 225 Balance -460 / -460 10 / 10 -105 / -105 Intake: IV 1110 / 1110 Primaxin 500 mg In Sodium 100 / 100 Chloride 0.9% 100 ml @ 100 mls/hr IV Q8H ANA Rx# :[id number] Potassium Chloride 20 Meq 1010 / 1010 In Sodium Chloride 0.45% 1,000 ml @ 100 mls/hr IV .Q10H6M ANA Rx#: [id number] Oral 240 / 240 350 / 350 120 / 120 Output: Void Amount 700 / 700 1450 / 1450 225 / 225 Other: Meal Dinner Breakfast Percent of Meal Consumed 100% 100% Feeding Ability Independent Independent # Voids 1 Weight 205 lb 8 oz Additional comments: Constitutional; Afebrile, cooperative, alert, not in distress. Eyes- No icterus, , No periorbital swelling Ears- Ext ear normal, hearing normal to conversation. Neck- Midline trachea, supple Respiratory system: Air Entry equal on both sides, No crackles or wheezing, no rhonchi. CVS- Rate rhythm regular, S1,S2 heard, no gallop, no rub. Abdomen- Soft nontender abdomen, no organomegaly, no tenderness, no guarding or rigidity, BIT SANDER- AOOx3, moving all extremities, no gross focal deficit noted. Medical - DS: Data Labs on day of discharge: Labs from last 24 hours 01/14/17 01/13/17 04:38 05:30 WBC 4.5 RBC 4.01 L Hgb 12.6 L Hct 36.6 L MCV 91.3 MCH 31.3 MCHC 34.3 RDW 14.1 Plt Count 190 MPV 7.5 Gran % 52.5 Lymph % (Auto) 29.4 Beauregard % (Auto) 7.5 Eos % (Auto) 9.9 H Baso % (Auto) 0.7 Gran # 2.4 Lymph # 1.3 L Beauregard # 0.3 Eos # 0.4 Baso # 0 ESR 20 H Preliminary micro results at discharge 01/13/17 12:54 Wound Culture - Preliminary Wound - Deep Medical - DS: A/P - Patient/Caregiver Discharge Instructions Activity: increase activity as tolerated Diet: Consistent Carbohydrate Additional Instructions: Leave dressing in place until follow-up visit with Dr Colorado this Friday. Use front wheel walker and off-loading shoe for ambulating Senior Accounts Payable Clerk(Winifred) will call you to set up an appt. when she gets back from vacation. Follow up with Infectious disease Physician at [facility] in 1 week Follow up with PCP in 2 weeks Go to ER if fever, chest pain, shortness of breath, or any new concerning symptom. Other Amb Orders: Diabetes Education Referral (outpatient) Location: Determined By Patient - Follow up Plan Follow up with: Andrey Colorado MD [Physician] - 01/17/17 1:20 am Kelvin Ovalles DO [Primary Care Provider] - Disposition: Home, Self-Care Prognosis: Fair Rehab Potential: Fair I certify that the patient requires SNF services: No Overall status at discharge: patient is progressing back to baseline Medical - DS: Qual - VTE Deep Vein Thrombosis/Pulmonary Embolism Present on Admission: No
[2017-01-14] MEDS ORDERED: INSULIN GLARGINE, HUMAN 1 UNIT/0.01 ML SQ SCH (12:00)
== END 2017-01-14 14:00 | disposition home or self-care (01) | DRG 464 ==
LOC: ED 14:44 → MEDSUR 17:50
PROVIDERS: ADMIT Internal Medicine; ATTEND Internal Medicine